=== PATIENT | female | born 1945 | race Caucasian/White ===

== ENCOUNTER 2020-01-13 23:43 | Emergency (ER) | payer MEDICARE, BC ==
--- NOTE | 2020-01-14 00:06 | ED Physician Documentation ---
History of Present Illness - Stated complaint Stated Complaint: CP/HBP - Chief complaint Chief Complaint: Ext Problem - Additonal information Additional information: This is a 74-year-old female presents with some lower chest tightness for 1 hour. Patient states that this began in the absence of any clear inciting factors, she was resting in her home and she developed a bandlike tightness. She denies shortness of breath, hemoptysis, leg swelling, any history of cardiac problems. She denies any pain in her shoulders or arms. 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 She denies nausea or vomiting. No history of blood clots. Review of Systems Constitutional: denies: Fever Nose: denies: Rhinorrhea / runny nose Throat: denies: Dental pain / toothache Cardiac: reports: Chest pain / pressure Respiratory: denies: Dyspnea GI: denies: Abdominal Pain, Vomiting : denies: Dysuria Neurologic: denies: Generalized weakness Immunocompromised: denies: Immunocompromised PD PAST MEDICAL HISTORY - Past Medical History Cardiovascular: None Respiratory: COPD Endocrine/Autoimmune: None GI: None : Incontinence, Other HEENT: None Psych: None Musculoskeletal: Osteoarthritis Derm: None - Past Surgical History Past Surgical History: No /[employer]: Hysterectomy - Present Medications Home Medications: Ambulatory Orders Medication Instructions Recorded Confirmed Aspirin Chewable [[facility] [place] 81 mg ORAL DAILY 04/21/14 07/21/14 Aspirin] - Allergies Allergies/Adverse Reactions: Allergies Allergy/AdvReac Type Severity Reaction Status Date / Time Penicillins Allergy Hives Verified 01/13/20 23:58 - Social History Does the pt smoke?: No Smoking Status: Never smoker Does the pt drink ETOH?: No Does the pt have substance abuse?: No PD ED PE NORMAL - Vitals Vital signs reviewed: Yes - General General: Alert and oriented X 3, No acute distress - HEENT HEENT: PERRL - Neck Neck: Supple, no meningeal sign - Cardiac Cardiac: RRR - Respiratory Respiratory: No respiratory distress, Clear bilaterally - Abdomen Abdomen: Normal bowel sounds, Soft, Non tender, Non distended, Other (No tenderness with deep palpation of the right upper quadrant, epigastrium, left upper quadrant) - Derm Derm: Warm and dry - Extremities Extremities: No deformity - Neuro Neuro: Alert and oriented X 3, Other (Right-sided facial droop) - Psych Psych: Normal mood, Normal affect Results - Vitals Vitals: Vital Signs - 24 hr 01/14/20 01/14/20 01:53 02:59 Temperature 36.6 C Heart Rate 66 68 Respiratory 12 14 Rate Blood Pressure 153/70 H 150/72 H O2 Saturation 96 98 Oxygen O2 Source Room air - EKG (time done) 23:55 Other comments: Other comments (Rate 70, rhythm sinus, there is a left bundle branch block. There is no ST segment elevation or depression. QTc 483 ) - Labs Labs: Laboratory Tests 01/14/20 01/14/20 01/14/20 00:02 00:02 00:30 WBC 7.9 RBC 4.77 Hgb 13.5 Hct 42.3 MCV 88.7 MCH 28.3 MCHC 31.9 L RDW 14.2 Plt Count 217 MPV 10.2 Neut # (Auto) 4.7 Lymph # (Auto) 2.2 [place] # (Auto) 0.7 Eos # (Auto) 0.2 Baso # (Auto) 0.0 Absolute Nucleated RBC 0.00 Nucleated RBC % 0.0 Sodium 138 Potassium 3.9 Chloride 104 Carbon Dioxide 27 Anion Gap 7.0 BUN 23 H Creatinine 0.7 Estimated GFR (MDRD) 82 L Glucose 116 H Calcium 8.9 Total Bilirubin 0.4 AST 19 ALT 16 Alkaline Phosphatase 44 Troponin I High Sens 8.0 Total Protein 6.7 Albumin 3.5 Globulin 3.2 Albumin/Globulin Ratio 1.1 Lipase 28 01/14/20 01:55 WBC RBC Hgb Hct MCV MCH MCHC RDW Plt Count MPV Neut # (Auto) Lymph # (Auto) [place] # (Auto) Eos # (Auto) Baso # (Auto) Absolute Nucleated RBC Nucleated RBC % Sodium Potassium Chloride Carbon Dioxide Anion Gap BUN Creatinine Estimated GFR (MDRD) Glucose Calcium Total Bilirubin AST ALT Alkaline Phosphatase Troponin I High Sens 8.3 Total Protein Albumin Globulin Albumin/Globulin Ratio Lipase - Rads (name of study) CXR Radiology: Other (Cardiomegaly without signs of acute cardiopulmonary disease) PD MEDICAL DECISION MAKING - ED course Complexity details: considered differential (ACS, pneumonia, pneumothorax, pulmonary embolism, musculoskeletal pain) ED course: Patient is well-appearing on arrival, she has a benign abdomen with no ten derness, cardiopulmonary exam is unremarkable. Her chest x-ray shows signs of cardiomegaly without acute disease. Her EKG showed left bundle branch block but no convincing signs of Acute ischemia or dysrhythmia.Delta troponin was obtained troponin is normal at 8, and is stable at 8.3. On repeat evaluation she is feeling improved she is not having chest discomfort at this time. She has no lower extremity, no signs of DVT, her oxygen saturation is excellent, her heart rate is normal, her description of her discomfort as a bandlike tightness that resolves would be extremely atypical for pulmonary embolism. I discussed with the patient that I do not see a clear explanation for her chest discomfort but given that she is feeling better and she has very reassuring exam, vitals, and labs, and imaging, I think she is appropriate for outpatient follow-up. I discussed return precautions and patient was discharged home in good condition. Prior to discharge I discussed with her that she is some signs of longstanding hypertension including cardiomegaly on her x-ray EKG, recommended follow-up with her primary care provider on this. Departure - Departure Disposition: 01 Home, Self Care Clinical Impression: Chest tightness Condition: Good Instructions: ED Chest Pain Atypical Unkn Cause Follow-Up: Rod Chavez MD [Primary Care Provider] - Comments: You were seen today for chest tightness, your labs do not show signs of heart strain/heart attack, however your EKG suggests that you may have some poorly controlled chronic high blood pressure. Please help with your primary care provider on your symptoms as well as your blood pressure. If you having worsening symptom such as shortness of breath or increasing or changing chest pain, or repeated vomiting or abdominal pain, return to the emergency department. Discharge Date/Time: 01/14/20 02:59
[2020-01-14 00:12] LABS: BASOPHILS % (AUTO) 0.5 %; EOSINOPHILS # (AUTO) 0.2 10^3/uL (0.0-0.7); EOSINOPHILS % (AUTO) 2.3 %; HGB - HEMOGLOBIN 13.5 g/dL (12.0-16.0); LYMPHOCYTES # (AUTO) 2.2 10^3/uL (1.5-3.5); LYMPHOCYTES % (AUTO) 28.2 %; MEAN CORPUSCULAR HEMOGLOBIN 28.3 pg (27.0-31.0); MEAN CORPUSCULAR HGB CONC 31.9 g/dL (32.0-36.0); MEAN CORPUSCULAR VOLUME 88.7 fL (81.0-99.0); MEAN PLATELET VOLUME 10.2 fL (7.9-10.8); MONOCYTES # (AUTO) 0.7 10^3/uL (0.0-1.0); MONOCYTES % (AUTO) 8.5 %; NEUTROPHILS # (AUTO) 4.7 10^3/uL (1.5-6.6); NEUTROPHILS % (AUTO) 60.1 %; PLT - PLATELET COUNT 217 10^3/uL (130-450); RED BLOOD COUNT 4.77 10^6/uL (4.20-5.40); RED CELL DISTRIBUTION WIDTH 14.2 % (12.0-15.0); WHITE BLOOD COUNT 7.9 x10^3/uL (4.8-10.8)
[2020-01-14 00:50] LABS: ALBUMIN 3.5 g/dL (3.2-5.5); ALBUMIN/GLOBULIN RATIO 1.1 (1.0-2.2); BILIRUBIN,TOTAL 0.4 mg/dL (0.2-1.0); CALCIUM 8.9 mg/dL (8.5-10.3); CREATININE 0.7 mg/dL (0.4-1.0); TOTAL PROTEIN 6.7 g/dL (6.7-8.2)
--- NOTE | 2020-01-14 01:41 | XRAY Report ---
Reason: chest pain Procedure Date: 01/14/2020 Accession Number: [id number] / [id number] Procedure: XR - Chest 2 View X-Ray CPT Code: 71637 Final Report FULL RESULT: EXAM: CHEST RADIOGRAPHY EXAM DATE: 01/14/2020 01:26 AM. CLINICAL HISTORY: Chest pain. COMPARISON: CHEST 2 VIEW PA/LAT 04/13/2015 9:12 AM. TECHNIQUE: 2 views. FINDINGS: Lungs/Pleura: No focal opacities evident. No pleural effusion. No pneumothorax. Normal volumes. Mediastinum: Cardiomegaly. Atherosclerotic calcifications. Other: None. IMPRESSION: Cardiomegaly, but no evidence of acute cardiopulmonary disease. [facility]
[2020-01-14 03:00] VITALS: BP 150/72
== END 2020-01-14 02:59 | disposition home or self-care (01) ==
LOC: ED 23:43
DX: R07.89 Other chest pain (principal)
CPT/HCPCS: 36415; 71046; 80053; 83690; 84484; 85025; 93005; 99284